=== PATIENT | male | born 1995 | race African-American/Black ===

== ENCOUNTER 2023-11-20 11:57 | Emergency (ER) | payer OTHER, SELFPAY ==
[2023-11-20 12:07] VITALS: BP 155/104
--- NOTE | 2023-11-20 12:25 | ED.GENMED ---
History of Present Illness
<Jessica Jacobs PA-C - Last Filed: 11/20/23 19:22>
General
Chief Complaint: Musculo-Skeletal Complaint
Source: patient
Exam Limitations: none
Time Seen by Provider: 11/20/23 12:11
Nursing documentation reviewed up to this point in time: agreed with
Travel History
Have you had any contact with someone who has COVID-19?: No
Do you have any symptoms of coronavirus? Fever > 100 degrees, chills, cough, shortness of breath, sore throat, loss of taste or smell, muscle aches, or headache?: No
History of Present Illness
History of Present Illness:
Patient is a 28-year-old male with history of gout presenting for evaluation of atraumatic left knee pain. Symptoms started gradually yesterday during the day. Patient reports pain in his left knee worse with flexion. He is able to bear weight
with some discomfort. Patient states symptoms feel exactly similar to prior gout flares. Patient denies any recent trauma. Patient denies any fever, chills, chest pain, shortness of breath, or urinary symptoms. Patient does not feel ill.
Patient has no other complaints. Patient does take allopurinol to prevent gout flares. Patient has had multiple episodes of gout in left knee. These typically resolve with prednisone taper course.
Patient denies any history of IV drug use.
Past History
<Jessica Jacobs PA-C - Last Filed: 11/20/23 19:22>
Past History
ED Past Medical History: Psychiatric (Anxiety) and Other (Gout, obesity)
ED Past Surgical History: Tonsilectomy and Other (Eye surgery)
Social History
Tobacco: Non-smoker
Alcohol: Occasional
Drug: Marijuana (Prior) and Cocaine
Personal: Single
Living: with family (lives with his father)
Employment: Not employed
Family History
Family History: Other (Noncontributory)
Phy Exam
<Jessica Jacobs PA-C - Last Filed: 11/20/23 19:22>
Physical Exam
Physical Exam:
Vitals: Patient's vital signs are stable. Patient is afebrile
General: Patient is well appearing, no acute distress
Skin: Warm and dry, no rashes or lesions
Head: Normocephalic, atraumatic
Eyes: Sclera nonicteric. EOMs intact. No nystagmus.
Throat: Protecting airway
Neck: Normal ROM, no cervical spine tenderness, no meningismus
Cardiac: Regular rate and rhythm, no murmurs.
Pulm: Normal respiratory effort, no wheezes, rales, rhonchi heard on exam.
Abdomen: No abdominal tenderness.
Extremities: Minimal diffuse swelling of left knee. No erythema, warmth, red streaking. No point tenderness. Some pain with flexion and extension of left knee due to pain and stiffness. Left thigh and left calf normal. Left lower extremity with
good distal pulses, normal sensation.
Neuro: AAOx3. CN II-XII intact. No focal neurologic deficits.
Psychiatric: Normal affect.
Course
<Jessica Jacobs PA-C - Last Filed: 11/20/23 19:22>
Orders/Labs/Results
Orders:
Orders
11/20/23 12:41
Ketorolac [Toradol] 15 mg IM NOW STA
Prednisone [Deltasone] 50 mg PO NOW STA
Vital Signs
Initial and Last Documented VS:
Initial Vital Signs
Temp Pulse Resp BP Pulse Ox
98.0 F 84 16 155/104 97
11/20/23 12:07 11/20/23 12:07 11/20/23 12:07 11/20/23 12:07 11/20/23 12:07
Last Documented Vital Signs
Temp Pulse Resp BP Pulse Ox
98.0 F 84 16 155/104 97
11/20/23 12:07 11/20/23 12:07 11/20/23 12:07 11/20/23 12:07 11/20/23 12:07
<Jesus Camarena DO - Last Filed: 11/20/23 12:52>
Orders/Labs/Results
Orders:
Orders
11/20/23 12:41
Ketorolac [Toradol] 15 mg IM NOW STA
Prednisone [Deltasone] 50 mg PO NOW STA
Vital Signs
Initial and Last Documented VS:
Initial Vital Signs
Temp Pulse Resp BP Pulse Ox
98.0 F 84 16 155/104 97
11/20/23 12:07 11/20/23 12:07 11/20/23 12:07 11/20/23 12:07 11/20/23 12:07
Last Documented Vital Signs
Temp Pulse Resp BP Pulse Ox
98.0 F 84 16 155/104 97
11/20/23 12:07 11/20/23 12:07 11/20/23 12:07 11/20/23 12:07 11/20/23 12:07
<Jessica Jacobs PA-C - Last Filed: 11/20/23 19:22>
MDM/Problems Addressed
Differential Diagnosis Includes:
Not limited to: Gout flare, sprain, contusion, Lyme disease, highly doubt septic arthritis
MDM/Problems Addressed:
28-year-old male with history of gout presenting for atraumatic left knee pain and swelling. Patient with multiple prior flares that feel 'exactly 'similar to this. No fever, chills, systemic symptoms of infection. No history of IV drug use or
risk factors for septic joint. Patient vital signs are stable, he is afebrile. Exam as above. He is very well-appearing, nontoxic-appearing very minimal diffuse swelling of left knee without any redness or warmth. Slightly limited range of
motion due to stiffness/pain. No indication for arthrocentesis at this time. Symptoms are consistent with gout. No evidence of infection of left knee and given similarity to prior gout flares�will treat prophylactically with steroids and NSAIDs.
Steroids have worked for patient in the past. IM Toradol and first dose of steroid given here. Stable for discharge with prednisone taper course, NSAIDs. He will follow-up with primary care. Return precautions, specifically signs of infection
discussed at length.
Chronic conditions affecting care:
Gout
Acute Exacerbation and/or Progression of Chronic Illness:
Acute gout flare
<Jessica Jacobs PA-C - Last Filed: 11/20/23 19:22>
*Pulse Oximetry
Patient hypoxic: no
*EKG
Interpreted by ED Provider?: NA
*Associate Director Of Development Interpretation
Rate: Associate Director Of Development- N/A
*Critical Care Note
Total Time (30-74mins, 75-104mins- exclusive of procedures): Not Applicable
Data Reviewed
Review of Other/Old Records Reveals: Records
Source: previous hospital records
Further Testing Considered But Not Given:
Considered xray and arthrocentesis; very minimal swelling and no bony tenderness. Patient describes symptoms as exactly similar to prior gout flares.
ED Attending Note
<Jessica Jacobs PA-C - Last Filed: 11/20/23 19:22>
-
Portions of this chart may have been created with voice recognition software.� Occasional wrong word or��sound alike� substitutions may have occurred due to the inherent limitations of voice recognition software.
<Jesus Camarena DO - Last Filed: 11/20/23 12:52>
ED Attending Note
Patient seen and examined by attending physician: Yes
I performed the substantive portion of visit, reviewed & personally made and approve the management plan that is documented in note by myself or ORQUIDEA.: Yes
I performed a history and physical exam of patient and discussed management with resident, I reviewed resident's note and agree with documented findings and plan of care.: Yes
ED Attending Note:
I evaluated the patient at bedside. There is no clinical evidence for infection of the left knee. The patient has had several episodes like this in the past and states this is absolutely related to gout. Will start steroids as this has helped him
in the past.
Discharge Plan
Departure
Patient Disposition: Home (Routine Discharge)
Date of Disposition: 11/20/23
Time of Disposition: 12:49
Patient with high blood pressure during this ER visit?: Yes
Condition: Good
Covid-19: Not Applicable
Discharge Problem:
Gout
Instructions: Gout, BLOOD PRESSURE
Prescriptions:
New
prednisone 10 mg tablet
10 mg PO DIRECTED Qty: 30 0RF
Rx Instructions:
Take 4 tabs PO x 3 days, then 3 tabs PO x 3 days, then 2 tabs PO x 3 days, then 1 tab PO x 3 days
No Action
prednisone 10 mg tablet
10 mg PO DAILY Qty: 40 0RF
Rx Instructions:
taper.... 4 tabs daily x 4 days.then 3 tabs daily x 4 days. then 2 tabs daily x 4 days. then 1 tab daily x 4 days
prednisone 50 mg Tablet
50 mg PO DAILY Qty: 5 0RF
prednisone 20 mg tablet
40 mg PO DAILY Qty: 10 0RF
amoxicillin-pot clavulanate 875-125 mg tablet
1 tab PO BID Qty: 14 0RF
fluticasone propionate 50 mcg/actuation spray,suspension
1 spray intranasal DAILY Qty: 16 0RF
prednisone 10 mg Tablet
See Rx Instructions .ROUTE .COMPLEX Qty: 30 0RF
Rx Instructions:
Take By Mouth:
40 mg daily x3 days, 30 mg daily x3 days,
20 mg daily x3 days, 10 mg daily x3 days.
Referrals:
NONE,* [Family Provider] -
Activity Restrictions/Additional Instructions:
-Return to the emergency department with any high fevers, worsening pain, redness, or swelling of left knee, inability to ambulate, chest pain, shortness of breath, or any other concerns
-A prescription for prednisone has been sent to your pharmacy. You received your first dose while in the emergency department. You can start the taper course tomorrow.
-You should take tylenol and/ or naproxen as needed for pain. You can take naproxen 500mg twice daily over the next few days
-As discussed - you should follow-up with your primary care provider for further evaluation/management
Interventions
Interventions:
*Risk Screen - Suicide Last Done: 11/20/23 12:50
*General Assessment Last Done: 11/20/23 12:50
*Neglect/Abuse Screening Last Done: 11/20/23 12:50
ED- Fall Risk Assessment Last Done: 11/20/23 12:50
*ED COVID-19 Vaccine History Last Done: 11/20/23 12:50
*Nursing Disposition Last Done: 11/20/23 12:56
ED-Musculoskeletal Assessment Last Done: 11/20/23 12:50
Discharge Date and Time
Discharge Date/Time: 11/20/23 12:56
Print Language: [id number]
[2023-11-20] MEDS: DELTASONE 50 MG PO (12:46)
[2023-11-20] MEDS: TORADOL 15 MG IM (12:46)
== END 2023-11-20 12:56 | disposition home or self-care (01) ==
LOC: EMR 11:57
PROVIDERS: EMERGENCY PHYSICIAN Emergency Medicine
DX: M10.9 Gout, unspecified (principal); R03.0 Elevated blood-pressure reading, without diagnosis of hypertension
CPT/HCPCS: 99284; 96372